=== PATIENT | male | born 1970 | race Native Hawaiian/Other Pacific Islander ===

== ENCOUNTER 2020-03-02 14:59 | Emergency (ER) | payer SELFPAY ==
[2020-03-02 15:33] LABS: Bilirubin,Urine NEG (Negative); Blood,Urine NEG (Negative); Color,Urine Yellow (Yellow); Mucus,Urine FEW /HPF; Protein,Urine <15 mg/dL mg/dL (Negative); Urobilinogen,Urine < 2.0 mg/dL (<2.0); WBC,Urine < 1.0 /HPF (0.0-6.0)
[2020-03-02 15:42] LABS: Basophils # (Auto) 0.1 K/mm3 (0.0-0.1); Eosinophils # (Auto) 0.1 K/mm3 (0.0-0.4); Eosinophils % (Auto) 1.3 % (0.0-4.3); Hematocrit 48.9 % (35.5-45.6); Hemoglobin 17.3 gm/dl (11.8-15.2); Lymphocytes # (Auto) 3.2 K/mm3 (1.2-5.4); Lymphocytes % (Auto) 44.5 % (13.4-35.0); Mean Corpuscular HGB Conc 35 % (32-34); Mean Corpuscular Volume 94 fl (84-94); Monocytes # (Auto) 0.5 K/mm3 (0.0-0.8); Monocytes % (Auto) 6.9 % (0.0-7.3); Platelet Count 166 K/mm3 (140-440); Red Blood Count 5.23 M/mm3 (3.65-5.03); Red Cell Distribution Width 13.4 % (13.2-15.2)
[2020-03-02 15:58] LABS: BUN/Creatinine Ratio 17; Blood Urea Nitrogen 15 mg/dL (9-20); Calcium 9.4 mg/dL (8.4-10.2); Hemolysis Index 21
--- NOTE | 2020-03-02 22:04 | Emergency Department Report ---
ED General Adult HPI - General Chief complaint: Hyperglycemia Stated complaint: HYPERGLYCEMIA PUI?: No Time Seen by Provider: 03/02/20 21:40 Source: patient Mode of arrival: Ambulatory Limitations: No Limitations - History of Present Illness Initial comments: Patient is a 49-year-old male that presents emergency room with complaints of hyperglycemia. Patient states he went to see a primary care today for the first time because he was feeling fatigued and having increased urination. Patient states that they checked his blood sugar and it read high and his primary care sent him here to be evaluated for hyperglycemia. Patient denies any other symptoms. Patient denies chest pain. Patient denies shortness of breath.. Patient states that he urinates 2 times per night. Patient denies recent travel. Patient denies recent international travel. Patient denies exposure to the novel coronavirus. Patient denies sick contacts. Patient denies fever and chills. Patient denies cough. Patient denies diarrhea. Patient denies coming in contact with anybody with symptoms of the novel coronavirus. -: Sudden Consistency: constant Associated Symptoms: malaise. denies: confusion, chest pain, cough, diaphoresis, fever/chills, headaches, loss of appetite, nausea/vomiting, rash, seizure, shortness of breath, syncope, weakness - Related Data Previous Rx's Medication Instructions Recorded Last Taken Type metFORMIN [Glucophage] 500 mg PO BID 15 Days #30 tablet 03/02/20 Unknown Rx Allergies Allergy/AdvReac Type Severity Reaction Status Date / Time No Known Allergies Allergy Verified 03/02/20 15:10 ED Review of Systems ROS: Stated complaint: HYPERGLYCEMIA Other details as noted in HPI Constitutional: malaise. denies: chills, fever Eyes: denies: eye pain, eye discharge, vision change ENT: denies: ear pain, throat pain Respiratory: denies: cough, shortness of breath, wheezing Cardiovascular: denies: chest pain, palpitations Endocrine: no symptoms reported Gastrointestinal: denies: abdominal pain, nausea, diarrhea Genitourinary: denies: urgency, dysuria Musculoskeletal: denies: back pain, joint swelling, arthralgia Skin: denies: rash, lesions Neurological: denies: headache, weakness, paresthesias Psychiatric: denies: anxiety, depression Hematological/Lymphatic: denies: easy bleeding, easy bruising ED Past Medical Hx - Past Medical History Previous Medical History?: No - Surgical History Past Surgical History?: No - Family History Family history: no significant - Social History Smoking Status: Never Smoker Substance Use Type: None - Medications Home Medications: Home Medications Medication Instructions Recorded Confirmed Last Taken Type metFORMIN [Glucophage] 500 mg PO BID 15 Days #30 tablet 03/02/20 Unknown Rx ED Physical Exam - General Limitations: No Limitations General appearance: alert, in no apparent distress - Head Head exam: Present: atraumatic, normocephalic - Eye Eye exam: Present: normal appearance - ENT ENT exam: Present: mucous membranes moist - Neck Neck exam: Present: normal inspection - Respiratory Respiratory exam: Present: normal lung sounds bilaterally. Absent: respiratory distress - Cardiovascular Cardiovascular Exam: Present: regular rate, normal rhythm. Absent: systolic murmur, diastolic murmur, rubs, gallop - GI/Abdominal GI/Abdominal exam: Present: soft, normal bowel sounds. Absent: distended, tenderness, guarding - Rectal Rectal exam: Present: deferred - Extremities Exam Extremities exam: Present: normal inspection - Back Exam Back exam: Present: normal inspection - Neurological Exam Neurological exam: Present: alert, oriented X3 - Psychiatric Psychiatric exam: Present: normal affect, normal mood - Skin Skin exam: Present: warm, dry, intact, normal color. Absent: rash ED Course Vital Signs 03/02/20 15:11 Temperature 98.2 F Pulse Rate 75 Respiratory 20 Rate Blood Pressure 164/103 [Left] O2 Sat by Pulse 96 Oximetry - Reevaluation(s) Reevaluation #1: I discussed all results and clinical findings with patient. I discussed plan of care with patient. Patient agrees with plan of care. Patient is stable for discharge. Patient will be discharged home. Patient given discharge instructions. Patient voiced understanding of discharge instructions. 03/02/20 22:01 ED Medical Decision Making - Lab Data Result diagrams: 03/02/20 15:22 03/02/20 15:22 - Medical Decision Making Patient is a 49-year-old male that presents emergency room with complaints of hyperglycemia. Patient had labs done which was positive for hyperglycemia. Patient's renal function is normal. Patient's electrolytes are essentially unremarkable except for a low sodium. Patient's CBC was unremarkable. Patient's urine showed glucose in the urine. Patient denies any ketones. Patient's pH is 7.4. Patient has new onset diabetes with hyperglycemia. Patient will be given metformin. Patient does not require any further emergency medical services. Patient does not require inpatient services. Patient will be discharged home. - Differential Diagnosis Hyperglycemia, diabetes, new onset diabetes, HHS. Critical care attestation.: If time is entered above; I have spent that time in minutes in the direct care of this critically ill patient, excluding procedure time. ED Disposition Clinical Impression: Hyperglycemia, New onset type 2 diabetes mellitus, Nocturia Fatigue Qualifiers: Fatigue type: unspecified Qualified Code(s): R53.83 - Other fatigue Disposition: DC-01 TO HOME OR SELFCARE Is pt being admited?: No Does the pt Need Aspirin: No Condition: Stable Instructions: How to Check Your Blood Sugar (ED), Diabetes Mellitus Type 2 in Adults (ED), Meal Planning with Diabetes Exchanges (DC), Diabetic Hyperglycemia (ED) Additional Instructions: Patient to follow-up with primary care in 2 to 3 days. Patient to follow-up with aviation safety equipment technician in 2 to 3 days. Patient to increase water. Patient to eat a diabetes, low-salt, heart healthy diet. Patient to take meds as directed. Patient to return to the ER if condition worsens, changes or new symptoms arise. Prescriptions: metFORMIN [Glucophage] 500 mg PO BID 15 Days #30 tablet Referrals: PRIMARY MD NOEL [Primary Care Provider] - 2-3 Days DENVER MARSH MD [Staff Physician] - 2-3 Days Time of Disposition: 22:04
[2020-03-03 05:14] VITALS: BP 150/84
== END 2020-03-03 00:35 | disposition home or self-care (01) ==
LOC: ED 14:59
DX: E11.65 Type 2 diabetes mellitus with hyperglycemia (principal); R35.1 Nocturia
CPT/HCPCS: 36415; 80048; 81001; 82805; 82962; 85025